=== PATIENT | female | born 1960 | race Caucasian/White ===

== ENCOUNTER → 2017-10-05 | Outpatient (CLI) | payer OTHER | LOC: BMCIMAGING 13:27 | PROVIDERS: ATTEND Internal Medicine | DX: Z12.31 Encounter for screening mammogram for malignant neoplasm of breast (principal); E04.2 Nontoxic multinodular goiter | CPT/HCPCS: 76536-PO ==

== ENCOUNTER → 2018-09-01 | Outpatient (CLI) | payer OTHER | LOC: FIMAGING 14:44 | PROVIDERS: ATTEND Orthopaedic Surgery | DX: M16.11 Unilateral primary osteoarthritis, right hip (principal) ==

== ENCOUNTER 2018-09-20 10:00 | Inpatient (IN) | payer OTHER ==
--- NOTE | 2018-09-20 06:24 | PDHPUP ---
History & Physical Update H&P update statement: This history and physical update is based on an assessment of the patient which was completed after admission or registration (within 24 hours), but prior to the surgery/procedure. H&P update: H&P reviewed & patient examined, no change in patient's condition since H&P completed
[~2018-09-20 10:00] MED LIST: PROPOFOL/EMULSION 500 MG/50 ML BOTTLE IV ONE; TRANEXAMIC ACID 3,000 MG/50 ML BAG IRR ONE; fentaNYL 100 MCG/2 ML INJ ONE
[2018-09-20] MEDS ORDERED: FAMOTIDINE 20 MG TAB PO ONE (10:18)
[2018-09-20] MEDS ORDERED: DEXAMETHASONE 4 MG/ML VIAL IVP ONE (10:18)
[2018-09-20] MEDS ORDERED: ceFAZolin 2 GM/DEXTROSE 100 ML IV ONE (10:18)
[2018-09-20] MEDS ORDERED: ACETAMINOPHEN 325 MG TAB PO ONE (10:18)
[2018-09-20] MEDS ORDERED: LIDOCAINE 1% 2 ML INJ ID PRN (10:20)
[2018-09-20] MEDS ORDERED: LR 1,000 ML IV ONE (10:20)
[2018-09-20] MEDS ORDERED: TRANEXAMIC ACID 3,000 MG in NS (SYRINGE) 50 ML IRR ONE (12:00)
[2018-09-20] MEDS ORDERED: ROPIVACAINE 0.2% 80 MG, EPINEPHrine 0.2 MG, KETOROLAC TROMETHAMINE 30 MG in SYRINGE 0 ML IU ONE (12:00)
--- NOTE | 2018-09-20 12:04 | PDANEPAE ---
ANE History of Present Illness R hip pain, here for RTHA ANE Past Medical History - Cardiovascular History Hx Hypertension: No Hx Arrhythmias: No Hx Chest Pain: No Hx Coronary Artery / Peripheral Vascular Disease: No Hx CHF / Valvular Disease: No Hx Palpitations: No - Pulmonary History Hx COPD: No Hx Asthma/Reactive Airway Disease: No Hx Recent Upper Respiratory Infection: No Hx Oxygen in Use at Home: No Hx Sleep Apnea: No Sleep Apnea Screening Result - Last Documented: Negative - Neurologic History Hx Cerebrovascular Accident: No Hx Seizures: No Hx Dementia: No - Endocrine History Hx Diabetes: No - Renal History Hx Renal Disorders: No - Liver History Hx Hepatic Disorders: No - Neurological & Psychiatric Hx Hx Neurological and Psychiatric Disorders: No - Cancer History Hx Cancer: Yes Cancer History Comment: pre-cancerous lumps to breast - Congenital Disorder History Hx Congenital Disorders: No - GI History Hx Gastrointestinal Disorders: No - Other Health History Other Health History: none - Chronic Pain History Chronic Pain: Yes (R neck/shoulder) - Surgical History Prior Surgeries: none in last 5 yrs. 2008 total hysterectomy ANE Review of Systems Review of Systems: - Exercise capacity METS (RN): 4 METS ANE Patient History - Allergies Allergies/Adverse Reactions: No Known Allergies Allergy (Verified 09/20/18 10:22) - Home Medications Home Medications: Cholecalciferol Vit D3 [Vitamin D3 (*)] 1,000 units PO DAILY 09/01/18 [Last Taken 09/06/18] Estradiol [Estraderm 0.1 MG (RX)] 0.1 mg TD Q14D 09/01/18 [Last Taken 09/13/18] Multivitamins [Multivitamin (*)] 1 each PO DAILY 09/01/18 [Last Taken 09/06/18] Progesterone, Micronized [Progesterone] 100 mg PO HS 09/01/18 [Last Taken ] - NPO status NPO Since - Liquids (Date): 09/20/18 NPO Since - Liquids (Time): 09:00 NPO Since - Solids (Date): 09/19/18 NPO Since - Solids (Time): 18:30 - Smoking Hx Smoking Status: Never smoked - Family Anes Hx Family Hx Anesthesia Complications: mother,brother severe nausea ANE Labs/Vital Signs - Vital Signs Blood Pressure: 120/52 Heart Rate: 61 Respiratory Rate: 16 O2 Sat (%): 99 Height: 170.18 cm Weight: 57.606 kg ANE Physical Exam - Airway Neck exam: FROM Mallampati Score: Class 1 Mouth exam: normal dental/mouth exam - Pulmonary Pulmonary: no respiratory distress, no rales or rhonchi - Cardiovascular Cardiovascular: regular rate and rhythym, no murmur, rub, or gallop - ASA Status ASA Status: II ANE Anesthesia Plan Anesthesia Plan: GA with mask, spinal Total IV Anesthesia: Yes
[2018-09-20] MEDS ORDERED: MIDAZOLAM 2 MG/2 ML VIAL ONE (12:05)
[2018-09-20] MEDS ORDERED: MIDAZOLAM 2 MG/2 ML VIAL IVP ONE (12:05)
[2018-09-20] MEDS ORDERED: NALOXONE HCL 0.4 MG/ML INJ IVP PRN ×2 (12:51→14:19)
[2018-09-20] MEDS ORDERED: MEPERIDINE 25 MG/0.5 ML AMP IVP PRN ×2 (12:51→14:19)
[2018-09-20] MEDS ORDERED: HYDROmorphONE/DILAUDID 2 MG/ML INJ IVP PRN (12:51)
[2018-09-20] MEDS ORDERED: ACETAMINOPHEN 500 MG TAB PO PRN ×2 (12:51→14:19)
[2018-09-20] MEDS ORDERED: PROMETHAZINE HCL 25 MG/ML INJ IVP PRN ×3 (12:51→14:20)
[2018-09-20] MEDS ORDERED: fentaNYL 100 MCG/2 ML INJ IVP PRN (12:51)
[2018-09-20] MEDS ORDERED: DIAZEPAM 5 MG/ML 1 ML SYR IVP PRN ×2 (12:51→14:19)
[2018-09-20] MEDS ORDERED: oxyCODONE IR 5 MG TAB PO PRN ×2 (12:51→14:19)
[2018-09-20] MEDS ORDERED: LR 500 ML IV PRN ×2 (12:51→14:19)
[2018-09-20] MEDS ORDERED: PROPOFOL/EMULSION 500 MG/50 ML BOTTLE IV ONE (13:03)
[2018-09-20] MEDS ORDERED: DEXAMETHASONE 4 MG/ML VIAL ONE (13:03)
[2018-09-20] MEDS ORDERED: ONDANSETRON 4 MG/2 ML VIAL ONE (13:03)
[2018-09-20] MEDS ORDERED: BUPIVACAINE/DEXTROSE 7.5MG/ML 2 ML SPINAL AMP SP ONE (13:03)
[2018-09-20] MEDS ORDERED: PHENYLEPHRINE HCL 100 MCG/ML SYR ONE (13:03)
[2018-09-20] MEDS ORDERED: ONDANSETRON DISINTEGRATING 4 MG TAB PO PRN (14:20)
[2018-09-20] MEDS ORDERED: METOCLOPRAMIDE 10 MG/2 ML VIAL IVP PRN (14:20)
[2018-09-20] MEDS ORDERED: LACTULOSE 20 GM/30 ML UDCUP PO PRN (14:20)
[2018-09-20] MEDS ORDERED: POLYETHYLENE GLYCOL 3350 17 GM PKT PO PRN (14:20)
[2018-09-20] MEDS ORDERED: CYCLOBENZAPRINE 10 MG TAB PO PRN (14:20)
[2018-09-20] MEDS ORDERED: MAGNESIUM HYDROXIDE 30 ML UDCUP PO PRN (14:20)
[2018-09-20] MEDS ORDERED: BISACODYL 10 MG SUPP PR PRN (14:20)
[2018-09-20] MEDS ORDERED: PROMETHAZINE HCL 25 MG SUPPR PR PRN (14:20)
[2018-09-20] MEDS ORDERED: DIPHENOXYLATE/ATROPINE LOMOTIL 1 TAB PO PRN (14:20)
[2018-09-20] MEDS ORDERED: TEMAZEPAM 15 MG CAP PO PRN (14:20)
[2018-09-20] MEDS ORDERED: diphenhydrAMINE 25 MG CAP PO PRN (14:20)
--- NOTE | 2018-09-20 14:20 | POSTOPPROG ---
Post Op Note Date of Operation: 09/20/18 Surgeon: Rudy Cochran Golf Caddie: Kamryn King and Consuelo Cochran, PAC Anesthesiologist: Dr. Sibley Anesthesia: Spinal Pre-op Diagnosis: right hip OA Post-op Diagnosis: same Indication: right hip pain Procedure: right APRYL, robot assisted Findings: severe OA of right hip Inf/Abcess present in the surg proc area at time of surgery?: No EBL: 50-100
--- NOTE | 2018-09-20 14:21 | POSTANESTH ---
Post Anesthetic Evaluation Cardiovascular Status: Normal, Stable Respiratory Status: Normal, Stable Level of Consciousness/Mental Status: Can Participate in Eval, Alert and Oriented Pain Control: Adequate, Prn Tx Ordered Nausea/Vomiting Control: Adequate, Prn Tx Ordered Complications Possibly Related to Anesthesia: None Noted (moving bilateral lower extremities and comfortable for exam)
[2018-09-20] MEDS ORDERED: MEPERIDINE 25 MG/0.5 ML AMP ONE (14:24)
[2018-09-20] MEDS ORDERED: fentaNYL 100 MCG/2 ML INJ ONE (14:24)
[2018-09-20] MEDS ORDERED: HYDROmorphONE/DILAUDID 2 MG/ML INJ ONE (14:26)
[2018-09-20] MEDS: fentaNYL 100 MCG/2 ML INJ IVP PRN ×2 (14:27→14:34)
[2018-09-20] MEDS: HYDROmorphONE/DILAUDID 2 MG/ML INJ IVP PRN ×4 (14:32→15:07)
[2018-09-20] MEDS ORDERED: PROMETHAZINE HCL 25 MG/ML INJ ONE (15:33)
[2018-09-20] MEDS: oxyCODONE IR 5 MG TAB PO PRN ×2 (16:52→18:08)
[2018-09-20] MEDS: ACETAMINOPHEN 325 MG TAB PO SCH (17:39)
[2018-09-20] MEDS: LR 1,000 ML IV SCH (17:39)
[2018-09-20] MEDS: ceFAZolin 2 GM/DEXTROSE 100 ML IV SCH (20:30)
[2018-09-20] MEDS: SENNOSIDES/DOCUSATE SODIUM TAB PO SCH (20:31)
[2018-09-20] MEDS: ASPIRIN 81 MG CHEWABLE TAB PO SCH (20:31)
[2018-09-20] MEDS: FAMOTIDINE 20 MG TAB PO SCH (20:32)
[2018-09-20] MEDS: ONDANSETRON 4 MG/2 ML VIAL IVP PRN (20:43)
--- NOTE | 2018-09-20 21:30 | PDMN ---
Medical Necessity Medical necessity: [facility] [place], A-2 days: 58 yo s/p R APRYL, [facility] IP only
[2018-09-21] MEDS: ACETAMINOPHEN 325 MG TAB PO SCH ×4 (00:10→12:20)
[2018-09-21] MEDS: LR 1,000 ML IV SCH ×2 (01:48→10:44)
[2018-09-21] MEDS: ONDANSETRON 4 MG/2 ML VIAL IVP PRN (01:48)
[2018-09-21] MEDS: oxyCODONE IR 5 MG TAB PO PRN (01:49)
[2018-09-21] MEDS: ceFAZolin 2 GM/DEXTROSE 100 ML IV SCH (05:10)
[2018-09-21 08:33] VITALS: BP 112/61
--- NOTE | 2018-09-21 08:48 | SOAPPROG ---
SOAP Progress Note Assessment/Plan: Assessment: Patient is doing well POD 1 s/p R APRYL Pain management: patient received 8mg of IV morphine last night. has not received flexeril. recommend d/c morphine. encouraging flexeril VTE ppx: recommend aspirin 81 mg BID for 4 weeks, cont SARA and SCDs Anemia: level is expected initially postop. Asymptomatic. Continue to monitor vasovagal episode: patient had vasovagal episode yesterday one hour after morphine. patient states mild lightheadedness this morning. D/c planning: Patient is planning on d/c to home today, recommend monitoring for lightheadedness and pain control today. she may need another night. Patient must be released from PT before discharge to home. Plan: 09/21/18 08:44 Subjective: patient is doing well today, denies SOB, chest pain and n/v Objective: Vital Signs Temp Pulse Resp BP Pulse Ox 36.7 C 59 L 18 112/61 96 09/21/18 08:32 09/21/18 08:32 09/21/18 08:32 09/21/18 08:32 09/21/18 08:32 Laboratory Results 09/21/18 05:34 09/20/18 09/21/18 09/22/18 05:59 05:59 05:59 Intake Total 4060 Output Total 2300 Balance 1760 RLE: incision dressing is clean and dry, NVI, +pf/df ICD10 Worksheet Patient Problems: Problems Problem Status Onset Primary localized osteoarthritis of right hip Acute
[2018-09-21] MEDS: ASPIRIN 81 MG CHEWABLE TAB PO SCH (10:14)
[2018-09-21] MEDS: FAMOTIDINE 20 MG TAB PO SCH (10:14)
[2018-09-21] MEDS: SENNOSIDES/DOCUSATE SODIUM TAB PO SCH (10:14)
--- NOTE | 2018-09-25 10:51 | GDS ---
[f rep st] DISCHARGE SUMMARY ADMISSION DIAGNOSIS: Right hip osteoarthritis. DISCHARGE DIAGNOSIS: Right hip osteoarthritis. PROCEDURE: Right total hip arthroplasty, robotic assisted. VTE PROPHYLAXIS: Recommend aspirin 81 mg twice daily for 4 weeks. BRIEF DESCRIPTION OF HOSPITAL STAY: Patient was admitted for an elective joint arthroplasty. The pat ient tolerated the procedure well and has passed physical therapy. The patient was given appropriate antibiotic prophylaxis and venous thromboembolism prophylaxis. The patient's pain was well controlled on oral pain medication, patient was holding down food, and had urinated. Decision was made to disch arge the patient. The patient was given post-operative prescriptions pre-operatively. PLAN: To follow up as scheduled with Dr. Cochran's office October 09 at 10:15 a.m. /[id number]/MODL
--- NOTE | 2018-09-26 09:46 | GOP ---
[f rep st] OPERATIVE REPORT DATE OF OPERATION: 09/20/2018 SURGEON: Bryan Cochran MD TIRE MAN: 1. TODD Moore. 2. TODD Mariscal. ANESTHESIA: Spinal. PREOPERATIVE DIAGNOSIS: Right hip osteoarthritis. POSTOPERATIVE DIAGNOSIS: Right hip osteoarthritis. PROCEDURE PERFORMED: Right total hip arthroplasty with computer navigation, robotic assist. FINDINGS: ESTIMATED BLOOD LOSS: 200 cc. INDICATIONS: The patient has progressively worsening arthritis of the hip which has failed medical m anagement. The patient understands the treatment option including continued non-operative care and h as selected surgical intervention. The patient has decided to undergo total hip arthroplasty via the direct anterior approach understanding the risks of the procedure including, but not limited to, kierra rovascular injury, infection, persistent pain, component wear and loosening, deep venous thrombosis, pulmonary embolism, limb length inequality (including dislocation), and intraoperative fractures. DESCRIPTION OF PROCEDURE: After proper identification of the patient including verification and mirta ing the surgical site, the patient was brought to the operating room and placed in the supine positio n. All bony prominences were well padded. Anesthesia was induced without complication and intraveno us prophylactic antibiotics were administered prior to skin incision. After prepping and draping in the usual sterile fashion, attention was drawn to the contralateral pel vis for attachment of the computer navigation tracker. Three percutaneous incisions were made over t he iliac crest and the pelvic tracker was affixed using threaded 3.5 mm pins yielding excellent fixat ion. Using computer navigation the patient's leg length and topographical pelvic anatomy was registe red without complication. Attention was then drawn to surgical exposure of the hip. An incision was made with a #10 Bard Vlad r blade starting 3 cm lateral and 3 cm distal to the anterior superior iliac spine measuring 8 cm to 10 cm and coursing distally toward the greater trochanter. The skin and subcutaneous tissues were di vided sharply down the fascia juan ramon. The fascia juan ramon was incised in line with the skin incision expos ing the underlying tensor fascia juan ramon muscle. This muscle was bluntly elevated from the fascia and t he first extracapsular Cobra retractor was placed laterally at the junction of the superior femoral n santana and greater trochanter. The lateral femoral circumflex vessels were identified, cauterized and d ivided with the Aquamantys bipolar cautery. The deep investing fascia of the TFL was divided to allo w proper mobilization of the muscle preventing damage during retraction. The reflected head of the r ectus femoris muscle was elevated off the anterior hip capsule and a medial Cobra retractor was place d just proximal to the lesser trochanter. The anterior capsulotomy was made sharply from the superolateral acetabulum to the saddle junction of the superior femoral neck and greater trochanter, then coursing inferomedial towards the lesser troc hanter. The retractors were then placed in the intracapsular position for femoral neck osteotomy. C orresponding to preoperative templating the osteotomy was made with the oscillating saw protecting th e greater trochanter and soft tissues. The femoral head was removed from the acetabulum with a corks crew and confirmed to be severely arthritic with exposed bone, deformity and osteophytes. Similar fi ndings were confirmed in the acetabulum. The Arch table extension was then placed in 40 degrees external rotation. Attention was then drawn t o the acetabular preparation. After placement of the anterior and posterior Cobra retractors outside the labrum and intrascapular the circumferential labrum was removed sharply. The foveal contents we re then removed and hemostasis obtained with cautery. The anatomy of the acetabulum was then registe red using computer navigation. The first reamer selected was sized using the removed femoral head. Reaming began with robotic samir t at 40 degrees of abduction and 20 degrees of anteversion using computer navigation. Reaming ceased 0 mm less than the definitive acetabular component. The final acetabular component was inserted usi ng the computer to achieve proper orientation yielding excellent purchase and stability in the acetab ulum. The final acetabular liner was then placed and its seating confirmed. Attention was then turned to the femur. The Arch table extension was placed in extension and adducti on delivering the osteotomized femoral neck into the wound. A 2-pronged femoral elevator was placed at the calcar and another at the tip of the greater trochanter. The posterolateral capsule was relea sed with cautery allowing mobilization of the femur lateral and anterior for preparation. The software tools build engineer al rotators were visualized and preserved. A curette and rongeur were used to open the starting poin t for broaching. Serial broaching started with the #0 broach and ended with the broach that exhibited excellent fit in the proximal femur. A change in pitch during mallet strikes was accompanied by the inability to advance the broach any further. The trial reduction was performed and fluoroscopic soumya igation was utilized to check limb length. Adjustments were made to equalize limb length accordingly . After the final trials were accepted they were removed and the wound was copiously lavaged. The femo ral component was seated to the same depth as the final broach and the femoral head was impacted onto the clean trunnion. The hip was then reduced for the final time and once more fluoroscopic navigati on used to check that limb length equality was achieved. The wound was irrigated and closed in layers, the fascia juan ramon with 2-0 Quill, the subcutaneous tissue with a 2-0 Quill, and the skin with Dermabond, including the small incisions for computer navigation . Sterile dressings were applied. Final sharps and sponge counts were accurate. The patient was th en transferred to a hospital bed and brought to the recovery room in stable condition. Prior to placing the acetabular liner, one 6.5 x 30 mm screw was placed. IMPLANTS: Accolade II size 4 at 132. Acetabular component, a Trident II 52 mm. Liner is a Trident X3, 36 mm. Head is a Biolox Delta 36 mm +2.5. /[id number]/MODL
== END 2018-09-21 16:24 | disposition home or self-care (01) | DRG 470 ==
LOC: F3N 10:04
PROVIDERS: ADMIT Orthopaedic Surgery; ATTEND Orthopaedic Surgery
DX: M16.11 Unilateral primary osteoarthritis, right hip (principal); Z23 Encounter for immunization
CPT/HCPCS: 97110-GP; 97116-GP; 97161-GP; C1713; G0008; J0171; J0690; J1100; J1170; J1885; J2175; J2250; J2270; J2370; J2405; J2550; J2704; J2795; J3010